=== PATIENT | male | born 2005 | race Caucasian/White ===

== ENCOUNTER 2024-06-10 10:23 | Emergency (ER) | payer OTHER, MEDICAID ==
[~2024-06-10] VITALS: Ht 177.8 cm; Wt 93.5 kg
[2024-06-10 10:28] VITALS: TEMP 98.2
[2024-06-10] MEDS: dexamethasone sod phosphate 10mg/ml inj PO STA (11:09)
[2024-06-10] MEDS: LIDOcaine 2% Viscous 15ml cup MM PRN (11:09)
[2024-06-10 11:22] LABS: STREP A SCREEN NEGATIVE (Neg)
[2024-06-10] MEDS ORDERED: PRED20TA PO (13:40)
[2024-06-10] MEDS ORDERED: LIDO15SO9 PO (13:40)
[2024-06-10 13:47] VITALS: BP 146/75; PULSE 81; RESP 15; O2SAT 100
== END 2024-06-10 13:50 | disposition home or self-care (01) ==
LOC: ER 10:24
DX: J02.8 Acute pharyngitis due to other specified organisms (principal); Z20.822 Contact with and (suspected) exposure to COVID-19
CPT/HCPCS: 36415; 87081; 87502; 87503; 87811; 87880; 99283; J1100